=== PATIENT | female | born 1960 | race Caucasian/White ===

== ENCOUNTER 2017-01-08 10:19 | Emergency (ER) | payer MEDICARE, OTHER ==
[2017-01-08 12:37] VITALS: BP 128/84
[2017-01-08] MEDS ORDERED: Albuterol 2.5 MG/3 ML NEB.SOL* (0.083%) INH ONE (13:13)
[2017-01-08] MEDS ORDERED: Ipratropium 0.5MG/2.5ML NEB* 0.5 MG/2.5 ML NEB.SOLN INH ONE (13:13)
--- NOTE | 2017-01-08 15:04 | UC ---
Homar Haley Angela, scribed for Yanira Niño DO on 01/08/17 at 1308 . General HPI - HPI Summary HPI Summary: THis pt is a 56 y/o female presenting to [facility] c/o cough x3 days (since Tuesday01/05/17). Pt reports it is a painful, non-productive cough that interfers with sleep. Her cough is worse at night when lying down. She states her cough keeps her awake at night. Pt notes chest pain, headache, throat pain secondary to cough. Pt had a fever 3 days ago, unsure of what her temperature was. She denies SOB, sinus congestion, sinus drainage, abd pain, nausea, vomiting, myalgia, arthralgia. PMHx: thyroid disease. Pt is currently taking Ambien. - History of Current Complaint Chief Complaint: UCRespiratory Stated Complaint: CHEST CONGESTION/COUGH Time Seen by Provider: 01/08/17 13:01 Hx Obtained From: Patient Onset/Duration: Lasting Days, Still Present Timing: Constant Onset Severity: Moderate Current Severity: Moderate Aggravating: lying down at night Associated Signs & Symptoms: Positive: Cough - non-productive, Chest Pain - secondary to cough, Fever - 3 days ago, none currently, Headache - secondary to cough, Other - POS: sore throat secondary to cough, chills. NEG: sinus congestion, sinus drainage, myalgia, arthralgia. Negative: Abdominal Pain, Dizziness, Nausea, SOB, Vomiting - Allergy/Home Medications Allergies/Adverse Reactions: Allergies Allergy/AdvReac Type Severity Reaction Status Date / Time Codeine Allergy Unknown Verified 01/08/17 10:36 Reaction Details Hydrocodone Allergy Palpitation Verified 01/08/17 10:36 s Latex Allergy Rash Verified 01/08/17 10:36 Morphine Allergy Unknown Verified 01/08/17 10:36 Reaction Details Oxycodone Allergy Palpitation Verified 01/08/17 10:36 s Penicillins [PCN] Allergy Unknown Verified 01/08/17 10:36 Reaction Details Sulfa Antibiotics Allergy Unknown Verified 01/08/17 10:36 Reaction Details Tramadol [From Ultram] Allergy Nausea And Verified 01/08/17 10:36 Vomiting CONTRAST Allergy Tachycardia Uncoded 01/08/17 10:36 PMH/Surg Hx/FS Hx/Imm Hx Endocrine History: Thyroid Disease Other Cardiovascular History: DENIES: HTN - Surgical History Surgical History: Yes Surgery Procedure, Year, and Place: T&A CHILD-TUBAL LIGATION 1982-PARTIAL HYSTERECTOMY -THYROIDS REMOVED. 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 04/2015 LEFT ACHILLES TENDON REPAIRED - Family History Known Family History: Positive: Cardiac Disease, Hypertension, Diabetes, Other - CA - Social History Alcohol Use: Occasionally Substance Use Type: None Smoking Status (MU): Never Smoked Tobacco Review of Systems Constitutional: Fever - 3 days ago, now resolved, Chills Skin: Negative Eyes: Negative ENT: Sore Throat - secondary to cough, Other - NEG: sinus drainage, sinus congestion Respiratory: Cough Cardiovascular: Chest Pain - secondary to cough Gastrointestinal: Negative Genitourinary: Negative Motor: Negative Neurovascular: Negative Musculoskeletal: Negative Neurological: Negative Psychological: Negative All Other Systems Reviewed And Are Negative: Yes Physical Exam Triage Information Reviewed: Yes Appearance: Well-Appearing, No Pain Distress, Well-Nourished Vital Signs: Initial Vital Signs Temp 98 F 01/08/17 10:36 Pulse 103 01/08/17 10:36 Resp 20 01/08/17 10:36 BP 145/96 01/08/17 10:36 Pulse Ox 100 01/08/17 10:36 Vital Signs Reviewed: Yes Eyes: Positive: Conjunctiva Clear. Negative: Discharge ENT: Positive: Hearing grossly normal, Pharynx normal, TMs normal. Negative: Nasal congestion, Nasal drainage, Tonsillar swelling, Tonsillar exudate, Trismus , Muffled voice, Hoarse voice, Sinus tenderness Neck exam: Normal Neck: Positive: Supple Respiratory: Positive: No respiratory distress, No accessory muscle use, Wheezing - scattered, Other: - bronchospasm Cardiovascular: Positive: RRR, No Murmur Musculoskeletal Exam: Normal Neurological: Positive: Alert, Muscle Tone Normal Psychological Exam: Normal Psychological: Positive: Age Appropriate Behavior Skin Exam: Normal, Other - warm, dry, normal color. Re-Evaluation - Re-Evaluation First Eval Re-Evaluation Time: 13:57 Comment: After breathing treatment wheezing has resolved. Pt still reports significant pain with cough and inability to take a deep breath without coughing. Course/Dx - Course Course Of Treatment: Medications reviewed this visit. High blood pressure noted likely due to pts condition. On re-evaluation, after breathing treatment, wheezing has resolved. Pt still reports significant pain with cough and inability to take a deep breath without coughing. Pt was discharged home with a spacer, inhaler, tessalon, and Mucinex. - Differential Dx - Multi-Symptom Provider Diagnoses: Acute bronchitis Discharge - Discharge Plan Condition: Stable Disposition: HOME Prescriptions: Albuterol HFA INHALER* [Ventolin HFA Inhaler*] 2 puff INH Q4H PRN #1 mdi PRN Reason: Sob/Wheezing Benzonatate CAP* [Tessalon 100 MG CAP*] 100 mg PO TID #30 cap guaiFENesin ER TAB [Mucinex*] 600 mg PO BID PRN #1 box PRN Reason: Cough Patient Education Materials: Acute Bronchitis (ED) Referrals: Lisa Brown MD [Primary Care Provider] - 6 Days (fOLLOW UP IN 6 DAYS IF NOT IMPROVING. MAKE THIS APPOINTMENT ON TUESDAY. IF FEELING BETTER, REMEMBER TO CANCEL.) Additional Instructions: INHALED BRONCHODILATORS: You have received a prescription for an inhaled bronchodilator -- a medication which stimulates the airways in the lung to dilate. This improves the flow of air in asthma, bronchitis, and emphysema. These medicines have some similarity to adrenaline, and can cause similar side effects: shakiness, racing heart, and a sense of nervousness. These side effects decrease with time. Contact your doctor if these side effects are severe. Do not over-use the medicine. Too-frequent use of the inhaler may make it ineffective. Call your doctor if the inhaler is not controlling your symptoms at the prescribed doses. EXPECTORANT MEDICATION: WE SENT IN A SCRIPT FOR MUCINEX SO THAT IT IS EASIER FOR YOU TO PICK THE RIGHT MED AT THE PHARMACY. HOWEVER, YOU CAN ALSO GO TO THE [employer] [facility] AND BUY PLAIN GUAIFENESIN WITHOU BINDERS OR FILLERS. An expectorant medicine has been prescribed. This type of drug makes mucous thinner, helping the sinuses, nose, and bronchial tubes to remain free of pus and mucous. Expectorants make a cough less severe and more comfortable, and help infected sinuses drain. In general, antihistamines defeat the purpose of the expectorant by making mucous thicker. They should be avoided unless specifically recommended by your physician. EDY DOUGLASS: You have received a prescription for Tessalon Perles (benzonatate). This is a non-narcotic medicine for relief of cough. It usually works in about 15- 20 minutes and lasts around four hours. Tessalon Perles should be swallowed. They should not be chewed or dissolved in the mouth (this can produce temporary numbing of the mouth and choking can occur). If you develop any adverse effects such as wheezing, shortness of breath, hives, rash, itching, or lightheadedness, please return at once. Your blood pressure was elevated at this visit, 128/84. That does not mean you have hypertension, it is probably due to your current condition. Please follow up with your primary care provider. The documentation as recorded by the Homar tai Angela accurately reflects the service I personally performed and the decisions made by me, Ynaira Niño DO.
== END 2017-01-08 14:15 | disposition home or self-care (01) ==
LOC: UCEAST 10:19
DX: J20.9 Acute bronchitis, unspecified (principal)
CPT/HCPCS: 99212; G0463; J7644

== ENCOUNTER 2018-09-07 05:28 | Day surgery (SDC) | payer BC, OTHER ==
--- NOTE | 2018-09-02 14:07 | HP ---
AMENDED REPORT NOW INCLUDES DESIGNATED COSIGNER HISTORY AND PHYSICAL: DATE OF ADMISSION/SURGERY: 09/07/18 DATE OF OFFICE VISIT: 08/28/18 SURGEON: Dr. Becca Contreras.* (DICTATED BY KINGA DOYLE) PROCEDURE: Right knee arthroscopy, partial meniscectomy, possible chondroplasty , synovectomy, and plica excision. CHIEF COMPLAINT: Right knee pain. HISTORY OF PRESENT ILLNESS: Ms. Pleitez is a 58-year-old female, who had a fall off a ladder at work on 09/10/16. Since that time, she has had pain along the medial joint line, increased pain with twisting and pivoting. Today, she reports a 7/10 pain along the joint line of her right knee with swelling. She was diagnosed with a meniscal tear and elects to proceed with arthroscopy at this time. PAST MEDICAL HISTORY: Hypothyroidism and kidney aneurysm. PAST SURGICAL HISTORY: , hysterectomy, renal aneurysm stent, partial thyroidectomy, tubal ligation, tonsillectomy. MEDICATIONS: 1. [place] Thyroid 15 mg 1 p.o. daily. 2. [place] Thyroid 60 mg 1 p.o. daily. 3. Zolpidem tartrate 10 mg half to one tab p.o. every night at bedtime as needed. 4. Zolpidem tartrate ER 12.5 mg p.o. daily. ALLERGIES: PENICILLIN, CODEINE, MORPHINE, SULFA ANTIBIOTICS, TAPE, and LATEX. FAMILY HISTORY: Positive for kidney disease and cancer. 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 She lives alone. She denies tobacco, recreational drug use. She drinks 1 glass of wine per week. She normally ambulates independently or with a cane as needed. She is right-hand dominant. REVIEW OF SYSTEMS: General: Negative for fevers, chills, night sweats, unexplained weight loss or gain. No known anesthesia problems. HEENT: Negative for headache, lightheadedness, syncopal episodes, visual changes. Integumentary: Negative for abrasions, lesions, open wounds. Cardiothoracic: Negative for hypertension, chest pain, palpitations, edema. Respiratory: Negative for shortness of breath with exertion, chronic cough, wheezing. GI: Negative for nausea, vomiting, diarrhea, constipation, GERD. : Negative for nocturia, urinary frequency, urgency, history of UTIs, or kidney problems. Musculoskeletal: Positive for right knee pain. Negative for chronic or intermittent back pain. No history of fractures. Neurologic: Negative for paresthesias, numbness, history of seizure, stroke, or poor balance. Psychiatric: Negative for anxiety, depression. Endocrine: Positive for thyroid issues. Negative for diabetes. Hematologic: Negative for easy bruising , anemia, bleeding disorders, or history of DVT. ID: Negative for history of MRSA, hep C, or HIV. PHYSICAL EXAMINATION GENERAL: Well-developed, well-nourished 58-year-old female, in no acute distress. VITAL SIGNS: Height 65 inches, weight 169 pounds, pulse 78, BP 140/80, respirations 14, pain 6, BMI 28.2. HEENT: Normocephalic, atraumatic. PERRLA. Extraocular movements intact. Throat is clear. NECK: Supple. No palpable lymph nodes. PULMONARY: Lungs are clear to auscultation bilaterally. No wheezes, rales, or rhonchi. CARDIO: Regular rate and rhythm. S1 and S2 normal. No murmurs, rubs, or gallops. No edema. ABDOMEN: Positive bowel sounds. Soft and nontender. NEUROLOGIC: A and O x3. Cranial nerves II through XII intact. Sensation is intact to light touch. MUSCULOSKELETAL: Right lower extremity: The patient's skin is intact. No abrasions or open wounds. No palpable masses or lymph nodes. Moderate effusion. Tenderness along the medial joint line. Positive Apley's and Marybel 's. Active range of motion is 5 to 100 degrees of flexion with severe pain. No obvious varus or valgus instability. Negative Allyson's. Distally, she is neurovascularly intact. DIAGNOSTIC STUDIES: MRI of the right knee from 05/03/18 is reviewed. There is a horizontal tear of the posterior horn and body of the medial meniscus. IMPRESSION: Right knee medial meniscus tear. PLAN: The patient is scheduled to undergo a right knee arthroscopy with partial meniscectomy, possible chondroplasty, synovectomy, and plica excision on 09/07/[address] Contreras went over the procedure as well as the risks and benefits with the patient. She agrees to proceed. She will return to the office 10 days postop for followup and suture removal. She will be given a prescription for Percocet for postoperative pain management and I-STOP was performed today in the office. KINGA FIELD [id number]/[facility] #: [id number] STACI
[~2018-09-07 05:28] MED LIST: Buffered Lidocaine 1% SYRIN* 1 ML/SYRINGE INTRADERM ONE
[2018-09-07] MEDS ORDERED: fentaNYL* 50 MCG/ML 2 ML VIAL (100 MCG VIAL) IV PRN (05:48)
[2018-09-07] MEDS ORDERED: Naloxone* 0.4 MG/ML 1 ML VIAL IV PRN (05:48)
[2018-09-07] MEDS ORDERED: Dexamethasone TAB* 4 MG ONE (05:59)
[2018-09-07] MEDS ORDERED: Ondansetron ODT TAB* 4 MG ONE (05:59)
[2018-09-07] MEDS ORDERED: Clindamycin 900 MG IVPREMIX(* 900 MG/50 ML SDV IV ONE (06:00)
[2018-09-07] MEDS ORDERED: Famotidine IV* 10 MG/ML 2 ML (20 mg) ONE (06:00)
[2018-09-07] MEDS ORDERED: Ondansetron ODT TAB* 4 MG PO ONE (06:00)
[2018-09-07] MEDS ORDERED: Lactated Ringers 1000 ML Bag* 1,000 ML IV SCH (06:00)
[2018-09-07] MEDS ORDERED: Famotidine IV* 10 MG/ML 2 ML (20 mg) IV ONE (06:00)
[2018-09-07] MEDS ORDERED: Dexamethasone TAB* 4 MG PO ONE (06:00)
[2018-09-07] MEDS ORDERED: Buffered Lidocaine 1% SYRIN* 1 ML/SYRINGE INTRADERM ONE (06:01)
[2018-09-07] MEDS ORDERED: ROPIVACAINE 5 MG/ML 30 ML BTL (0.5%) ONE (06:47)
[2018-09-07] MEDS ORDERED: methylPREDNISolone ACETATE 80* 80 MG/ML 1 ML VIAL ONE (06:47)
[2018-09-07] MEDS ORDERED: EPINEPHRINE 1 MG/ML 1 ML VIAL ONE (06:47)
[2018-09-07] MEDS ORDERED: Midazolam* 1 MG/ML 5 ML VIAL (5 MG) ONE (07:19)
[2018-09-07] MEDS ORDERED: KETAMINE HCL* 50 MG/ML 10 ML VIAL ONE (07:19)
[2018-09-07] MEDS ORDERED: fentaNYL* 50 MCG/ML 2 ML VIAL (100 MCG VIAL) ONE ×2 (07:19→09:09)
[2018-09-07] MEDS ORDERED: hydrALAZINE IV* 20 MG/ML VIAL ONE (07:51)
[2018-09-07] MEDS ORDERED: PROCHLORPERAZINE INJ 5 MG/ML 2 ML VIAL ONE (07:51)
[2018-09-07] MEDS ORDERED: Propofol* 10 MG/ML 20 ML BTL ONE (07:51)
[2018-09-07] MEDS ORDERED: Ketorolac INJ* 30 MG/ML 1 ML VIAL ONE (07:51)
[2018-09-07] MEDS ORDERED: DiMENhydriNATE IV* 50 MG/ML VIAL ONE (07:51)
[2018-09-07] MEDS ORDERED: Acetaminophen IV 1GM/100ML * 100 ML ONE (07:52)
[2018-09-07] MEDS ORDERED: Lidocaine 2% PF * 5 ML VIAL ONE (07:52)
[2018-09-07 10:09] VITALS: BP 146/80
--- NOTE | 2018-09-07 22:25 | OP ---
DATE OF OPERATION: 09/07/18 - [facility] DATE OF : 56 ATTENDING SURGEON: Becca Contreras MD COLLECTOR OF INTERNAL REVENUE: KINGA Holley. Mr. Siegel did help throughout the procedure with preparation of the leg, wound retraction, manipulation of the knee, and wound closure. ANESTHESIOLOGIST: Dr. Parish. ANESTHESIA: General. PRE-OP DIAGNOSIS: Right knee medial meniscal tear. POST-OP DIAGNOSIS: Right knee medial meniscal tear with moderate to severe degenerative changes in the medial compartment. OPERATIVE PROCEDURE: Right knee arthroscopy with partial medial meniscectomy. SPECIMEN: None. COMPLICATIONS: None. ESTIMATED BLOOD LOSS: Less than 25 cc. BRIEF HISTORY/INDICATION: Ms. Pleitez is a 58-year-old female who injured her right knee on 09/10/16 while working at [employer]. 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 The patient went on to be treated conservatively for knee pain, but this failed. An MRI showed a medial meniscal tear. Due to continued pain and decreased quality of life, she elected to undergo right knee arthroscopy with partial medial meniscectomy. Informed consent was obtained from the patient. She understood the risks of surgery included, but were not limited to, bleeding, infection, damage to nearby structures, continued pain, need for further surgery, intraoperative complications, anesthesia complications, re-tear of the meniscus , progression of arthritis, stroke, heart attack, blood clot, and . She wishes to proceed. INTRAOPERATIVE FINDINGS: Intraoperatively, the patient was noted to have a cartilage defect greater than 2 cm in diameter along the medial femoral condyle with exposed subchondral bone. This is grade 3 and 4 [place] cartilage change. She had a longitudinal type tear in the posterior one-third of the medial meniscus in the white-red zone. DESCRIPTION OF PROCEDURE: Ms. Pleitez was identified in the preanesthesia unit. Her right lower extremity was marked as the correct operative side. Informed consent was signed and placed in the chart. The patient was taken to the operating room and placed under anesthesia. Right lower extremity was prepped and draped in the usual sterile fashion. Preop time-out was made to correctly identify the patient, side and site. Appropriate perioperative antibiotics were given within 1 hour of incision. A 1.5 cm anterolateral portal incision was made with a 10-blade and carried down to the capsule. Trocar was introduced. As soon as the light and water sources were turned on, there was immediate visualization of the suprapatellar pouch. A tour of the knee joint was performed. Suprapatellar pouch had no obvious abnormality. Patellofemoral compartment had minimal degenerative changes and no obvious abnormality. Medial gutter showed no loose body or plica. Medial compartment showed a large area of exposed subchondral bone along the medial femoral condyle. This cartilage defect was proximally 2 cm in diameter. Posterior medial meniscus did show a tear with some anterior displacement. ACL and PCL were intact. The patient's knee was placed in a [id number] position. Lateral compartment showed no significant degenerative changes and no obvious lateral meniscal tear. Lateral gutter showed no loose body or plica. Under direct visualization, a medial portal incision was made. A probe was introduced to the knee joint. A second tour of the knee joint was performed. There were no additional findings. Straight biter and shaver were used to perform partial medial meniscectomy. The posterior medial meniscus tear was carefully excised in the white-red zone. Further probing of the meniscus showed no additional tears. Radiofrequency ablation wand was used to smooth the medial border of the meniscus. The knee was copiously irrigated with sterile saline. All instruments were removed. Incisions were closed using 3-0 nylon suture. Intraarticular injection of 80 mg Depo-Medrol and 6 cc of 0.5% Marcaine was placed in the knee joint. The patient's incisions were covered with Xeroform, 4x4s, and Webril. Reyes wrap and cold pack were placed over this. The patient's anesthesia was reversed without difficulty. She was taken to the PACU in stable condition. Intended weight-bearing will be weightbearing as tolerated. She will follow up in 2 weeks' time for a recheck. [id number]/[facility] #: [id number] STACI
== END 2018-09-07 10:17 | disposition home or self-care (01) ==
LOC: OR 05:28
PROVIDERS: ATTEND Orthopaedic Surgery Adult Reconstructive Orthopaedic Surgery
DX: S83.241A Other tear of medial meniscus, current injury, right knee, initial encounter (principal); W11.XXXA Fall on and from ladder, initial encounter; Y93.89 Activity, other specified; Y92.511 Restaurant or cafe as the place of occurrence of the external cause; Y99.0 Civilian activity done for income or pay; E03.9 Hypothyroidism, unspecified; M17.11 Unilateral primary osteoarthritis, right knee; I10 Essential (primary) hypertension; F41.9 Anxiety disorder, unspecified
CPT/HCPCS: A9270-GY; J0360; J0780; J1040; J1240; J1885; J2250; J2704; J2795; J3010; J8540